=== PATIENT | female | born 1985 | race Two or more races ===

== ENCOUNTER 2017-09-02 04:40 | Emergency (ER) | payer OTHER ==
[~2017-09-02] VITALS: Ht 149.9 cm; Wt 66.2 kg
[2017-09-02] MEDS ORDERED: PRENATAL + DHA1 EAC1 (04:43)
[2017-09-02] MEDS ORDERED: IROPLEX (04:44)
[2017-09-02] MEDS ORDERED: SYNTROID (04:45)
[2017-09-02] MEDS ORDERED: INTESTINEX680 M1 PO (09:00)
[2017-09-02] MEDS ORDERED: ZANTAC300 MG PO (09:00)
[2017-09-02] MEDS ORDERED: ZOFRAN4 MG PO (09:00)
== END 2017-09-02 09:19 | disposition home or self-care (01) ==
LOC: ER 04:40
DX: K52.9 Noninfective gastroenteritis and colitis, unspecified (principal)

== ENCOUNTER 2017-12-12 14:13 | Inpatient (IN) | payer OTHER ==
[~2017-12-12] VITALS: Ht 149.9 cm; Wt 72.1 kg
[~2017-12-12 14:13] MED LIST: INTESTINEX680 M1 PO; IROPLEX; PRENATAL + DHA1 EAC1; SYNTROID; ZANTAC300 MG PO; ZOFRAN4 MG PO
== END 2017-12-16 14:40 | disposition home or self-care (01) | DRG 766 ==
LOC: EDBD → OB/GYN 12-13 08:15 → O/R 12-13 14:11 → OB/GYN 12-13 14:54
PROVIDERS: Specialist
PROC: 0UL70ZZ Occlusion of Bilateral Fallopian Tubes, Open Approach (ICD-10-PCS; 2017-12-13)
PROC: 4A033R1 Measurement of Arterial Saturation, Peripheral, Percutaneous Approach (ICD-10-PCS; 2017-12-13)
PROC: 4A1HXCZ Monitoring of Products of Conception, Cardiac Rate, External Approach (ICD-10-PCS; 2017-12-13)
PROC: 10D00Z1 Extraction of Products of Conception, Low, Open Approach (ICD-10-PCS; principal; 2017-12-13 08:15)
DX: O64.1XX0 Obstructed labor due to breech presentation, not applicable or unspecified (principal); Z3A.39 39 weeks gestation of pregnancy; Z37.0 Single live birth; Z30.2 Encounter for sterilization